=== PATIENT | female | born 1970 | race Caucasian/White ===

== ENCOUNTER 2022-06-30 12:17 | Inpatient (IN) | payer OTHER ==
[~2022-06-30] VITALS: Ht 170.2 cm; Wt 64.9 kg
[~2022-06-30 12:17] MED LIST: IMODIUM A-D2 MG PO; INTESTINEX1 CAP PO; PROTONIX20 MG PO
[2022-06-30] MEDS ORDERED: PRILOSEC OTC20 MG PO (12:41)
[2022-06-30] MEDS ORDERED: PEPCID AC20 MG (12:42)
[2022-06-30] MEDS ORDERED: CARAFATE1 GM PO (12:42)
--- NOTE | 2022-06-30 15:32 | NUR ---
DR MALDONADO EVALUA A PTE QUIEN [place] MEDICO. SE ORIENTA A PTE SOBRE EL MISMO Y REFIEREN ENTENDER. SE REALIZAN MUESTRAS DE LABORATORIO Y ADMINISTRACION DE MEDICAMENTOS BRAIN ORDEN MEDICA BAJO MEDIDAS ASEPTICAS. SE MANTIENE EN ESPERA DE RESULTADOS.
[2022-07-01] MEDS ORDERED: HYDROCHLOROTH12.5 MG (08:32)
[2022-07-01] MEDS ORDERED: ALBUTEROL2.5 MG/3 M (08:32)
[2022-07-01] MEDS ORDERED: AMLODIPINE BESYL5 MG (08:32)
[2022-07-01] MEDS ORDERED: RAYOS5 MG (08:33)
[2022-07-01] MEDS ORDERED: FLOVENT HFA12 GM (08:33)
[2022-07-01] MEDS ORDERED: LISINOPRIL40 MG (08:33)
[2022-07-01] MEDS ORDERED: OMEPRAZOLE20 M1 (08:33)
[2022-07-01] MEDS ORDERED: MONTELUKAST SOD10 MG (08:33)
[2022-07-01] MEDS ORDERED: FAMOTIDINE40 MG (08:36)
== END 2022-07-08 15:25 | disposition home or self-care (01) | DRG 418 ==
LOC: ER 12:17 → MEDJ 20:46
PROVIDERS: Specialist; ADMIT Internal Medicine; ATTEND Internal Medicine
PROC: BF37ZZZ Magnetic Resonance Imaging (MRI) of Pancreas (ICD-10-PCS; 2022-06-30)
PROC: CF241ZZ Tomographic (Tomo) Nuclear Medicine Imaging of Gallbladder using Technetium 99m (Tc-99m) (ICD-10-PCS; 2022-07-02)
PROC: 0FT44ZZ Resection of Gallbladder, Percutaneous Endoscopic Approach (ICD-10-PCS; principal; 2022-07-07 07:00)
DX: K85.10 Biliary acute pancreatitis without necrosis or infection (principal); K80.10 Calculus of gallbladder with chronic cholecystitis without obstruction; K82.8 Other specified diseases of gallbladder; K29.60 Other gastritis without bleeding; Z20.822 Contact with and (suspected) exposure to COVID-19; I10 Essential (primary) hypertension